=== PATIENT | male | born 1950 | race Caucasian/White ===

== ENCOUNTER 2020-08-11 11:03 | Inpatient (IN) | payer MEDICARE, OTHER ==
[2020-08-11] MEDS ORDERED: Aspirin 325 MG TAB ONE (11:45)
[2020-08-11] MEDS ORDERED: methylPREDNISolone Sod Succ/PF 125 MG/2 ML VIAL ONE (11:45)
[2020-08-11] MEDS ORDERED: Magnesium 2 GM/50 ML BAG (IN WATER) ONE (11:46)
[2020-08-11] MEDS ORDERED: Ventolin HFA Inhaler 60 PUFF INHALER ONE (11:46)
[2020-08-11] MEDS ORDERED: Azithromycin 500 MG VIAL ONE (11:46)
[2020-08-11] MEDS ORDERED: cefTRIAXone\\ROCEPHIN 1 GM VIAL ONE (11:46)
[2020-08-11 12:22] LABS: ALT (SGPT) 16 U/L (8-55); AST (SGOT) 18 U/L (5-34); Albumin 4.4 g/dL (3.4-4.8); Alkaline Phosphatase 96 U/L (40-110); Anion Gap 20 mmol/L (10-20); BUN (Urea Nitrogen) 7 mg/dL (8.4-25.7); Bilirubin, Total 1.1 mg/dL (0.2-1.2); CK (CPK) 167 U/L (30-200); Calc. Creatinine Clearance 0 mL/min (70-130); Calcium 9.5 mg/dL (7.8-10.44); Carbon Dioxide 26 mmol/L (23-31); Globulin 3.1 g/dL (2.4-3.5); Glucose 150 mg/dL (83-110); Protein, Total 7.5 g/dL (5.8-8.1)
[2020-08-11 12:43] LABS: CKMB 5.6 ng/mL (0-6.6)
[2020-08-11 13:16] LABS: #Basophils 0.1 10x3/uL (0.0-0.2); #Eosinphils 0.4 10x3/uL (0.0-0.5); #Monocytes 0.7 10x3/uL (0.0-1.1); %Basophils 0.8 % (0.0-2.0); %Eosinophils 5.2 % (0.0-6.0); %Lymphocytes 28.2 % (18.0-47.0); %Monocytes 9.2 % (0.0-10.0); %Neutrophils 56.2 % (40.0-75.0); Hemoglobin 12.4 g/dL (13.5-17.5); Mean Corpuscular HGB CONC 31.6 g/dL (32.0-36.0); Mean Corpuscular Hemoglobin 28.6 pg (27.0-33.0); Mean Corpuscular Volume 90.8 fl (81.2-95.1); Mean Platelet Volume 9.6 fl (7.4-10.4); Platelet Count 196 10x3/uL (150-450); RBC Distribution Width 13.2 % (11.5-14.5); Red Blood Cell (RBC) Count 4.33 10x6/uL (4.32-5.72); White Blood Cell (WBC) Count 7.2 10x3/uL (3.5-10.5)
[2020-08-11 13:29] LABS: Anion Gap 15 mmol/L (10-20); BUN (Urea Nitrogen) 6 mg/dL (8.4-25.7); Calc. Creatinine Clearance 0 mL/min (70-130); Calcium 9.7 mg/dL (7.8-10.44); Carbon Dioxide 28 mmol/L (23-31); Chloride 100 mmol/L (98-107); Glucose 129 mg/dL (83-110); Potassium 4.3 mmol/L (3.5-5.1); Sodium 139 mmol/L (136-145)
[2020-08-11 13:55] LABS: Sodium 139 mmol/L (136-145)
[2020-08-11 13:56] LABS: Potassium 4.2 mmol/L (3.5-5.1)
[2020-08-11 13:57] LABS: Chloride 101 mmol/L (98-107)
[2020-08-11] MEDS ORDERED: Ondansetron PF 4 MG/2 ML Vial IVP PRN (14:27)
[2020-08-11] MEDS ORDERED: Guaifenesin DM 100-10/5 ML UDCUP PO PRN (14:27)
[2020-08-11] MEDS ORDERED: Acetaminophen 325 MG TAB PO PRN (14:27)
[2020-08-11] MEDS ORDERED: Senokot S 8.6-50 MG TAB PO PRN (14:27)
[2020-08-11 15:07] LABS: SARS-CoV-2 NAA Rapid Test Not Detected (NotDetected)
[2020-08-11 15:14] LABS: Troponin I 0.036 ng/mL (< 0.028)
[2020-08-11 15:55] LABS: Lactic Acid 1.9 mmol/L (0.5-2.2)
[2020-08-11 16:16] VITALS: BMI 26.2
[2020-08-11 16:48] LABS: Bilirubin Neg (Negative); Blood, Urine 250 (Negative); Clarity Clear (Clear); Glucose, Urine (Dipstick) Normal (Negative); Ketone, Urine Negative (Negative); Leukocyte 25 (Negative); Nitrite Positive (Negative); Protein, Urine (Dipstick) Negative (Neg-Trace); Specific Gravity, Urine 1.005 (1.002-1.036); Urobilinogen Normal mg/dL (Less than 2)
[2020-08-11 17:09] LABS: Bacteria/HPF 4+ HPF (None Seen); Squamous Epithelial 0-3 HPF (0-3); WBC/HPF 0-3 HPF (0-3)
[2020-08-11 18:42] LABS: Troponin I 0.036 ng/mL (< 0.028)
[2020-08-11] MEDS: Simvastatin 10 MG TAB PO SCH (20:30)
[2020-08-11] MEDS ORDERED: Promethazine HCl 25 MG/ML VIAL SLOW IVP PRN (22:17)
[2020-08-12] MEDS ORDERED: Morphine 2 MG/ML VIAL SLOW IVP SCH (01:00)
[2020-08-12 05:50] LABS: #Monocytes 0.2 10x3/uL (0.0-1.1); #Neutrophils 4.2 10x3/uL (1.5-8.4); %Lymphocytes 21.7 % (18.0-47.0); %Monocytes 3.4 % (0.0-10.0); %Neutrophils 74.5 % (40.0-75.0); Hemoglobin 12.1 g/dL (13.5-17.5); Mean Corpuscular HGB CONC 31.3 g/dL (32.0-36.0); Mean Corpuscular Hemoglobin 28.4 pg (27.0-33.0); Mean Corpuscular Volume 90.8 fl (81.2-95.1); Mean Platelet Volume 9.9 fl (7.4-10.4); Platelet Count 213 10x3/uL (150-450); RBC Distribution Width 13.4 % (11.5-14.5); Red Blood Cell (RBC) Count 4.26 10x6/uL (4.32-5.72); White Blood Cell (WBC) Count 5.7 10x3/uL (3.5-10.5)
[2020-08-12 05:57] LABS: ALT (SGPT) 13 U/L (8-55); AST (SGOT) 13 U/L (5-34); Albumin 4.2 g/dL (3.4-4.8); Alkaline Phosphatase 93 U/L (40-110); Anion Gap 14 mmol/L (10-20); BUN (Urea Nitrogen) 10 mg/dL (8.4-25.7); Calc. Creatinine Clearance 86 mL/min (70-130); Calcium 9.6 mg/dL (7.8-10.44); Carbon Dioxide 29 mmol/L (23-31); Chloride 100 mmol/L (98-107); Cholesterol 239 mg/dl (< 200 Desired); Globulin 3.5 g/dL (2.4-3.5); Glucose 162 mg/dL (83-110); HDL Cholesterol 60 mg/dL (>60 Neg Risk); LDL Cholesterol, Calculated 165 mg/dL; Potassium 4.6 mmol/L (3.5-5.1); Protein, Total 7.7 g/dL (5.8-8.1); Sodium 138 mmol/L (136-145); Triglycerides 72 mg/dL (Less than 150)
[2020-08-12] MEDS: DULoxetine 30 MG CAP PO SCH (10:22)
[2020-08-12] MEDS: Aspirin 81 mg Enteric Coated Tablet PO SCH (10:22)
[2020-08-12] MEDS: Losartan Potassium 50 MG TAB PO SCH (10:23)
[2020-08-12] MEDS: predniSONE 20 MG TAB PO SCH (10:23)
[2020-08-12] MEDS: Enoxaparin Sodium 40 MG/0.4 ML SYRINGE SC SCH (10:46)
[2020-08-12] MEDS ORDERED: FLU VACC QS2020-21(65YR UP)/PF 240 MCG/0.7 ML SYRINGE IM ONE (16:45)
[2020-08-12] MEDS: Simvastatin 10 MG TAB PO SCH (20:25)
[2020-08-13] MEDS ORDERED: Zolpidem Tartrate 5 MG TAB PO PRN (00:34)
[2020-08-13 01:26] VITALS: TEMP 97.5
[2020-08-13 05:19] VITALS: BP 136/79
[2020-08-13 06:20] LABS: ALT (SGPT) 12 U/L (8-55); AST (SGOT) 12 U/L (5-34); Albumin 3.7 g/dL (3.4-4.8); Alkaline Phosphatase 74 U/L (40-110); Anion Gap 13 mmol/L (10-20); BUN (Urea Nitrogen) 19 mg/dL (8.4-25.7); Bilirubin, Total 0.8 mg/dL (0.2-1.2); Calc. Creatinine Clearance 75 mL/min (70-130); Calcium 9.2 mg/dL (7.8-10.44); Carbon Dioxide 30 mmol/L (23-31); Chloride 94 mmol/L (98-107); Globulin 3.1 g/dL (2.4-3.5); Glucose 112 mg/dL (83-110); Protein, Total 6.8 g/dL (5.8-8.1); Sodium 133 mmol/L (136-145)
[2020-08-13 06:30] LABS: #Monocytes 0.7 10x3/uL (0.0-1.1); #Neutrophils 6.4 10x3/uL (1.5-8.4); %Basophils 0.1 % (0.0-2.0); %Eosinophils 0.2 % (0.0-6.0); %Lymphocytes 26.6 % (18.0-47.0); %Monocytes 7.6 % (0.0-10.0); %Neutrophils 65.2 % (40.0-75.0); Hemoglobin 11.1 g/dL (13.5-17.5); Mean Corpuscular HGB CONC 31.3 g/dL (32.0-36.0); Mean Corpuscular Hemoglobin 28.6 pg (27.0-33.0); Mean Corpuscular Volume 91.5 fl (81.2-95.1); Mean Platelet Volume 9.7 fl (7.4-10.4); Platelet Count 206 10x3/uL (150-450); RBC Distribution Width 13.3 % (11.5-14.5); Red Blood Cell (RBC) Count 3.88 10x6/uL (4.32-5.72); White Blood Cell (WBC) Count 9.8 10x3/uL (3.5-10.5)
[2020-08-13] MEDS: DULoxetine 30 MG CAP PO SCH (09:21)
[2020-08-13] MEDS: Aspirin 81 mg Enteric Coated Tablet PO SCH (09:21)
[2020-08-13] MEDS: predniSONE 20 MG TAB PO SCH (09:21)
[2020-08-13] MEDS: Enoxaparin Sodium 40 MG/0.4 ML SYRINGE SC SCH (09:22)
[2020-08-13] MEDS: Losartan Potassium 50 MG TAB PO SCH (09:22)
== END 2020-08-13 18:29 | disposition home or self-care (01) | DRG 191 ==
LOC: CSHERS 11:03 → CSHTELE 13:39 → UNDOADMOB 14:45 → INTOOBSV 14:45 → OBSVTOIN 08-13 11:52
PROVIDERS: ADMIT Internal Medicine; ATTEND Internal Medicine
DX: J44.1 Chronic obstructive pulmonary disease with (acute) exacerbation (principal); T83.518A Infection and inflammatory reaction due to other urinary catheter, initial encounter; N39.0 Urinary tract infection, site not specified; I24.8 Other forms of acute ischemic heart disease; S37.39XA Other injury of urethra, initial encounter; S37.30XA Unspecified injury of urethra, initial encounter; Z20.822 Contact with and (suspected) exposure to COVID-19; E78.5 Hyperlipidemia, unspecified; Z90.49 Acquired absence of other specified parts of digestive tract; Z79.82 Long term (current) use of aspirin; Z79.899 Other long term (current) drug therapy; I10 Essential (primary) hypertension; Z87.891 Personal history of nicotine dependence; Z88.3 Allergy status to other anti-infective agents; Z88.2 Allergy status to sulfonamides; R33.9 Retention of urine, unspecified; R77.8 Other specified abnormalities of plasma proteins; G89.29 Other chronic pain
CPT/HCPCS: 0240U; 36415; 51702; 71045; 80053; 80061; 81003; 81015; 82550; 82553; 83605; 83880; 84484; 85025; 87040; 87077; 87086; 87149; 87186; 93005; 96365; 96366; 96367; 96368; 96372; 96375; 96376; G0378; J0456; J0610; J0696; J1650; J1956; J2270; J2405; J2550; J2930; J3475; J3490; J7512

== ENCOUNTER 2021-09-17 11:25 | Inpatient (IN) | payer OTHER, MEDICARE ==
[2021-09-17] MEDS ORDERED: Ondansetron PF 4 MG/2 ML Vial IVP PRN (11:41)
[2021-09-17] MEDS ORDERED: Enoxaparin Sodium 40 MG/0.4 ML SYRINGE SC SCH (11:45)
[2021-09-17] MEDS ORDERED: Albuterol Sulfate 1.25 MG/3 ML NEB NEB PRN (11:46)
[2021-09-17] MEDS: Furosemide 40 MG/4 ML VIAL SLOW IVP SCH (13:17)
[2021-09-17] MEDS: methylPREDNISolone Sod Succ 40 MG VIAL IVP SCH ×3 (13:22→23:50)
[2021-09-17] MEDS: Acetaminophen 325 MG TAB PO PRN (15:13)
[2021-09-17] MEDS: Gabapentin 300 MG CAP PO SCH (21:13)
[2021-09-18 05:26] LABS: #Eosinphils 0.2 10x3/uL (0.0-0.5); #Monocytes 0.2 10x3/uL (0.0-1.1); #Neutrophils 5.2 10x3/uL (1.5-8.4); %Basophils 0.1 % (0.0-2.0); %Eosinophils 2.4 % (0.0-6.0); %Lymphocytes 20.5 % (18.0-47.0); %Neutrophils 73.4 % (40.0-75.0); Hemoglobin 13.6 g/dL (13.5-17.5); Mean Corpuscular HGB CONC 33.1 g/dL (32.0-36.0); Mean Corpuscular Hemoglobin 28.7 pg (27.0-33.0); Mean Corpuscular Volume 86.7 fl (81.2-95.1); Platelet Count 219 10x3/uL (150-450); RBC Distribution Width 12.8 % (11.5-14.5); Red Blood Cell (RBC) Count 4.74 10x6/uL (4.32-5.72); White Blood Cell (WBC) Count 7.1 10x3/uL (3.5-10.5)
[2021-09-18 05:28] LABS: Anion Gap 20 mmol/L (10-20); BUN (Urea Nitrogen) 16 mg/dL (8.4-25.7); Calc. Creatinine Clearance 61 mL/min (70-130); Calcium 10.1 mg/dL (7.8-10.44); Carbon Dioxide 23 mmol/L (23-31); Chloride 98 mmol/L (98-107); Glucose 167 mg/dL (83-110); Potassium 3.5 mmol/L (3.5-5.1); Sodium 137 mmol/L (136-145)
[2021-09-18] MEDS: methylPREDNISolone Sod Succ 40 MG VIAL IVP SCH ×2 (05:30→14:43)
[2021-09-18] MEDS: Acetaminophen 325 MG TAB PO PRN ×2 (05:30→23:09)
[2021-09-18] MEDS: Furosemide 40 MG/4 ML VIAL SLOW IVP SCH ×2 (05:31→14:43)
[2021-09-18] MEDS: Losartan Potassium 50 MG TAB PO SCH (08:41)
[2021-09-18] MEDS: Gabapentin 300 MG CAP PO SCH (08:41)
[2021-09-18] MEDS: Aspirin 81 mg Enteric Coated Tablet PO SCH (08:42)
[2021-09-18] MEDS: Enoxaparin Sodium 40 MG/0.4 ML SYRINGE SC SCH (08:42)
[2021-09-18] MEDS: DULoxetine 30 MG CAP PO SCH (08:42)
[2021-09-18] MEDS ORDERED: Potassium Chloride 20 MEQ TAB PO SCH (15:00)
[2021-09-18 16:15] LABS: Troponin I 0.017 ng/mL (< 0.028)
[2021-09-18] MEDS ORDERED: Simvastatin 10 MG TAB PO SCH (21:00)
[2021-09-19 04:45] VITALS: BMI 235476.6
[2021-09-19 04:47] LABS: #Eosinphils 0.2 10x3/uL (0.0-0.5); #Monocytes 0.9 10x3/uL (0.0-1.1); #Neutrophils 12.1 10x3/uL (1.5-8.4); %Basophils 0.2 % (0.0-2.0); %Eosinophils 1.1 % (0.0-6.0); %Lymphocytes 11.8 % (18.0-47.0); %Monocytes 6.2 % (0.0-10.0); %Neutrophils 80.2 % (40.0-75.0); Hemoglobin 12.8 g/dL (13.5-17.5); Mean Corpuscular HGB CONC 33.2 g/dL (32.0-36.0); Mean Corpuscular Hemoglobin 29.1 pg (27.0-33.0); Mean Corpuscular Volume 87.5 fl (81.2-95.1); Platelet Count 226 10x3/uL (150-450); RBC Distribution Width 13.1 % (11.5-14.5); White Blood Cell (WBC) Count 15.1 10x3/uL (3.5-10.5)
[2021-09-19 04:48] LABS: Anion Gap 17 mmol/L (10-20); BUN (Urea Nitrogen) 35 mg/dL (8.4-25.7); Calc. Creatinine Clearance 52 mL/min (70-130); Calcium 9.5 mg/dL (7.8-10.44); Carbon Dioxide 26 mmol/L (23-31); Chloride 93 mmol/L (98-107); Glucose 175 mg/dL (83-110); Potassium 3.8 mmol/L (3.5-5.1); Sodium 132 mmol/L (136-145)
[2021-09-19] MEDS: Furosemide 40 MG/4 ML VIAL SLOW IVP SCH (05:00)
[2021-09-19 08:19] VITALS: BP 160/84; TEMP 96.9
[2021-09-19] MEDS: Aspirin 81 mg Enteric Coated Tablet PO SCH (08:38)
[2021-09-19] MEDS: Enoxaparin Sodium 40 MG/0.4 ML SYRINGE SC SCH (08:38)
[2021-09-19] MEDS: Losartan Potassium 50 MG TAB PO SCH (08:38)
[2021-09-19] MEDS: DULoxetine 30 MG CAP PO SCH (08:38)
[2021-09-19] MEDS ORDERED: predniSONE 10 MG TAB PO SCH (09:00)
== END 2021-09-19 10:46 | disposition home or self-care (01) | DRG 291 ==
LOC: CSHTELE 11:25
PROVIDERS: ADMIT Internal Medicine; ATTEND Internal Medicine
DX: I11.0 Hypertensive heart disease with heart failure (principal); J96.01 Acute respiratory failure with hypoxia; I50.33 Acute on chronic diastolic (congestive) heart failure; J44.1 Chronic obstructive pulmonary disease with (acute) exacerbation; F03.91 Unspecified dementia, unspecified severity, with behavioral disturbance; F05 Delirium due to known physiological condition; E44.1 Mild protein-calorie malnutrition; E78.5 Hyperlipidemia, unspecified; N40.0 Benign prostatic hyperplasia without lower urinary tract symptoms; G89.29 Other chronic pain; F41.9 Anxiety disorder, unspecified; F32.A Depression, unspecified; G47.33 Obstructive sleep apnea (adult) (pediatric); R33.9 Retention of urine, unspecified; R73.9 Hyperglycemia, unspecified; T38.0X5A Adverse effect of glucocorticoids and synthetic analogues, initial encounter; Y92.239 Unspecified place in hospital as the place of occurrence of the external cause; Z90.49 Acquired absence of other specified parts of digestive tract; Z88.2 Allergy status to sulfonamides; Z88.8 Allergy status to other drugs, medicaments and biological substances; Z79.82 Long term (current) use of aspirin; Z79.899 Other long term (current) drug therapy; Z79.51 Long term (current) use of inhaled steroids; Z98.890 Other specified postprocedural states; Z87.891 Personal history of nicotine dependence; Z68.23 Body mass index [BMI] 23.0-23.9, adult
CPT/HCPCS: 36415; 80048; 84484; 85025; 93306; 94760; J1650; J1940; J2920; J7512

== ENCOUNTER 2022-09-27 11:31 | Emergency (ER) | payer MEDICARE | END 2022-09-27 13:35 | disposition home or self-care (01) | LOC: CSHERS 11:31 | DX: S09.90XA Unspecified injury of head, initial encounter (principal); I10 Essential (primary) hypertension; E78.5 Hyperlipidemia, unspecified; J45.909 Unspecified asthma, uncomplicated; W06.XXXA Fall from bed, initial encounter; Z79.82 Long term (current) use of aspirin; Z79.899 Other long term (current) drug therapy | CPT/HCPCS: 70450; 72125; 72192 ==

== ENCOUNTER 2022-11-05 01:32 | Emergency (ER) | payer MEDICARE ==
[2022-11-05 02:13] LABS: #Eosinphils 0.3 10x3/uL (0.0-0.5); #Monocytes 1.1 10x3/uL (0.0-1.1); #Neutrophils 5.5 10x3/uL (1.5-8.4); %Basophils 0.4 % (0.0-2.0); %Eosinophils 2.8 % (0.0-6.0); %Lymphocytes 22.3 % (18.0-47.0); %Monocytes 12.3 % (0.0-10.0); %Neutrophils 61.6 % (40.0-75.0); Hemoglobin 9.8 g/dL (13.5-17.5); Mean Corpuscular HGB CONC 30.8 g/dL (32.0-36.0); Mean Corpuscular Hemoglobin 27.7 pg (27.0-33.0); Mean Corpuscular Volume 89.8 fl (81.2-95.1); Mean Platelet Volume 9.5 fl (7.4-10.4); Platelet Count 279 10x3/uL (150-450); RBC Distribution Width 13.2 % (11.5-14.5); Red Blood Cell (RBC) Count 3.54 10x6/uL (4.32-5.72)
[2022-11-05 02:23] LABS: ALT (SGPT) 17 U/L (8-55); AST (SGOT) 20 U/L (5-34); Albumin 3.7 g/dL (3.4-4.8); Alkaline Phosphatase 97 U/L (40-110); Anion Gap 14 mmol/L (10-20); BUN (Urea Nitrogen) 26 mg/dL (8.4-25.7); Bilirubin, Total 0.5 mg/dL (0.2-1.2); Calc. Creatinine Clearance 0 mL/min (70-130); Calcium 9.5 mg/dL (7.8-10.44); Carbon Dioxide 26 mmol/L (23-31); Chloride 105 mmol/L (98-107); Estimated GFR 62; Globulin 3.6 g/dL (2.4-3.5); Glucose 101 mg/dL (83-110); Potassium 4.1 mmol/L (3.5-5.1); Protein, Total 7.3 g/dL (5.8-8.1); Sodium 141 mmol/L (136-145)
== END 2022-11-05 02:58 | disposition home or self-care (01) ==
LOC: CSHERS 01:32
DX: R42 Dizziness and giddiness (principal); E78.5 Hyperlipidemia, unspecified; I10 Essential (primary) hypertension; J44.9 Chronic obstructive pulmonary disease, unspecified; Z87.891 Personal history of nicotine dependence; Z79.899 Other long term (current) drug therapy
CPT/HCPCS: 71045; 80053; 85025; 93005

== ENCOUNTER 2023-08-13 18:21 | Emergency (ER) | payer MEDICARE, MEDICAID | END 2023-08-13 19:20 | disposition home or self-care (01) | LOC: CSHERS 18:21 | DX: T83.091A Other mechanical complication of indwelling urethral catheter, initial encounter (principal); J44.9 Chronic obstructive pulmonary disease, unspecified; Z87.891 Personal history of nicotine dependence | CPT/HCPCS: 51702; 99283 ==